=== PATIENT | female | born 1955 | race African-American/Black ===

== ENCOUNTER 2018-04-29 09:46 | Emergency (ER) | payer MEDICAID, OTHER ==
[~2018-04-29] VITALS: Ht 165.1 cm; Wt 67.0 kg
[~2018-04-29 09:46] MED LIST: ACET-3161; AMLO10TA80 PO; HYDR25TA PO; NAPR-681 PO; OMEP20CA10 PO; PROAIR; QVAR; TRIAMCINOLONE
[2018-04-29 10:06] VITALS: BP 177/84
[2018-04-29] MEDS ORDERED: DIPHENHYDRAMINE 25MG CAPSULE PO ONE (11:00)
== END 2018-04-29 12:08 | disposition home or self-care (01) ==
LOC: ER 09:46
DX: L23.9 Allergic contact dermatitis, unspecified cause (principal); I10 Essential (primary) hypertension; F17.210 Nicotine dependence, cigarettes, uncomplicated
CPT/HCPCS: 99282; Q0163

== ENCOUNTER 2022-11-05 10:33 | Emergency (ER) | payer MEDICAID ==
[~2022-11-05] VITALS: Ht 165.1 cm; Wt 67.0 kg
[~2022-11-05 10:33] MED LIST changes: -OMEP20CA10 PO; +OMEP20CA14 PO
[2022-11-05] MEDS ORDERED: ASPIRIN 325MG EC TABLET PO ONE (11:30)
[2022-11-05] MEDS ORDERED: HYDRALAZINE 20MG/ML VIAL IV ONE (11:30)
[2022-11-05 13:03] LABS: BASOPHILS % 0.9 % (0.0-2.0); EOSINOPHILS % 1.2 % (0.0-5.0); HEMATOCRIT. 42.8 % (36.0-48.0); HEMOGLOBIN. 14.6 g/dL (12.0-16.0); MEAN CORPUSCULAR HEMOGLOBIN 31.4 pg (28.0-32.0); MEAN CORPUSCULAR VOLUME 91.9 fL (81.0-99.0); MEAN PLATELET VOLUME 9.4 fl (7.4-10.4); MONOCYTES % 9.5 % (2.0-8.0); NEUTROPHILS % 50.4 % (40.0-76.0); PLATELET 229 x1000/uL (130-400); RED BLOOD CELL COUNT 4.65 mill/uL (4.2-5.4); RED CELL DISTRIBUTION WIDTH 13.5 % (11.6-14.6)
[2022-11-05 13:04] LABS: CHLORIDE 108 mEq/L (98-107)
[2022-11-05 16:06] VITALS: BP 116/69
== END 2022-11-05 19:15 | disposition home or self-care (01) ==
LOC: ER 10:33
DX: I10 Essential (primary) hypertension (principal); F17.200 Nicotine dependence, unspecified, uncomplicated; Z98.890 Other specified postprocedural states; Z79.899 Other long term (current) drug therapy
CPT/HCPCS: 36415; 71045; 80053; 83880; 84484; 85025; 93005; 99285; Z7610; J0360